=== PATIENT | female | born 1965 | race Caucasian/White ===

== ENCOUNTER 2025-10-15 04:00 | Day surgery (SDC) | payer OTHER, SELFPAY ==
[2025-10-13 10:14] VITALS: BMI 26.4
--- NOTE | 2025-10-13 10:25 | PC.NURSE ---
[facility] has started construction of its new state of the art ER which will open Spring 2026. With this, we anticipate parking may be a challenge for some our surgical patients and families. Parking spaces are limited but are available for all Surgical, obstetrics, and ER patients sharing this lot. If you arrive and find you are having a hard time finding a parking space, please note that we understand the challenges, please drive around the hospital and park near Hospital Entrance 1. When you enter this entrance, you can ask a volunteer to direct or take you back to the surgical waiting area to check in. We appreciate everyone?s understanding of these expected challenges while we build for your future. Report to the Outpatient Waiting Room, entrance under the green pavilion located off [address], at time 0830 on date _10/15/25_. Planned Procedure Time: _1030_.? Time changes happen often and if your time is changed the preop area will call you the afternoon before. - You and your visitor will be asked to self-screen and do not enter if you have any COVID symptoms. Please call surgeon if you need to reschedule. - A mask is optional within the hospital at this time. Patients may have clear liquids (water, carbonated beverages, clear teas, apple juice) until 3 hours prior to surgery with a maximum of 20 ounces. - No food from midnight until time of surgery and no smoking, or chewing tobacco (or any form of nicotine). No chewing gum, candy or mints. Take only the following medications with a SIP of water on the morning of surgery: ____LEVOTHYROXINE DO NOT STOP ANY OF YOUR OTHER PRESCRIPTION MEDICATIONS PRIOR TO SURGERY EXCEPT THE FOLLOWING Hold all vitamins and supplements TODAY 10/13/25 per anesthesiologist. Medications to discontinue per physician Date to take last dose Please no make-up, nail greenlandic, hairspray, perfume, deodorant, or body powder the day of surgery.? No jewelry (including any body piercings) or valuables the day of surgery, leave them at home.? Please take a shower or bath the night before, or the morning of, surgery with an antibacterial soap.? Wear comfortable, loose fitting clothing.? Children are encouraged to wear pajamas. - Jewelry must be removed prior to entering the operating room.? Rings and piercings that are not removed may be cut off. - The hospital will not accept responsibility for valuables.? - Please leave all valuables, including medications, at home the day of surgery. If you are going home after surgery, a licensed car pick up driver must drive you home.? - NO public transportation without another adult if you receive anesthesia. - We recommend that an adult stay with you for 24 hours following discharge. - We also recommend that you do not drive, make important decision, drink alcoholic beverages, or take any drugs that were not prescribed by your health care provider for at least 24 hours after your discharge time. For Pediatric surgeries, we recommend two adults accompany the child home. Follow any additional instructions given to you from your surgeon. Telephone instructions given to _PATIENT_and asked if any additional questions and then verbalized understanding. Patient advised to call surgeon office or pre surgery nurse liaison [phone] if any additional questions.
[2025-10-15] VITALS (10 sets, daily range): BP systolic 123–171; BP diastolic 65–84; PULSE 69–86; RESP 14–22; TEMP 36.4–36.7; O2SAT 91–100; BMI 27.3
--- OUTSIDE RECORDS SUMMARY | 2025-10-15 04:09 | XMS_ITS | Continuity of Care Document ---
Author Organization [facility] Address [address] [place] [address] Care Team Providers Care Covered Button Maker Name Role Phone BERTHA MACIAS Primary Care Provider Assessment No assessment recorded. Plan of Treatment Reminders Order Date Submit Date Provider Last Modified By Organization Details Last Modified Time Details Appointments Robotic [facility] 2024 10:30A Claudia POON MD Not available Not available Not available SURG POST OP 2024 03:15P Claudia POON MD Not available Not available Not available Lab None recorded . Referral None recorded . Procedures None recorded . Surgeries None recorded . Imaging None recorded . Medication Orders None recorded . Patient TargetsNo targets recorded. Patient InstructionsNo instructions recorded. Reason for Referral None Reported. Results Created Date Observation Date Name Description Value Unit Range Abnormal Flag Note LastModifiedBy Organization Detail LastModifiedTime 08/27/2008/27/2025 US, love rogers No observ ation record ed. [email or web address] [address], [place], [address], 08/27/2025 21:29:29 08/27/20 25 08/27/2025 US, love rogers No observ ation record ed. [facility] [address], [place], [address], 08/27/2025 18:52:57 08/27/2008/27/2025 , so knott No observ ation record ed. [facility] [address], [place], [address], 08/27/2025 18:53:06 Result Notes None recorded. Procedures Surgical History Date Name Laterality Status Provider Name and Address Organization Details Recorded Time 025 Colposcopy completed Kennedy Poon MD [address], [place], [address], , P[facility] 08/13/2025 16:46:16 025 Colposcopy completed Pat Silvermanney [facility] 08/27/2025 16:46:21 025 Colposcopy completed Avis Coyne [facility] 08/13/2025 15:36:21 025 Date of Last Pap Smear completed [facility] 08/04/2025 15:05:10 025 Date of Last Mammogram completed [facility] 08/04/2025 15:11:53 999 Tonsillectomy completed [facility] 08/04/2025 15:16:24 cholecystectomy completed [facility] 08/04/2025 15:17:14 Imaging Results None recorded. Procedure Notes None recorded. Medical Equipment None Reported. Allergies Allergen ID Allergen Name Allergen Category Reaction Reaction Severity Criticality Documentation Date Start Date Code Code System Note Provider Name and Address Organization Details Recorded Time 12789 codeine medicatio n Not available Not available Not available 08/04/2025 2670 RxNorm [facility] 15:04:19 09983 amoxicill in medicatio n Not available Not available Not available 08/04/2025 723 RxNorm [facility] 15:04:24 85179 ciproflox acin medicatio n Not available Not available Not available 08/04/2025 2551 RxNorm Sonia Burk [facility] 15:04:32 66158 acetamino phen / hydrocodo ne medicatio n Not available Not available Not available 08/04/2025 56539 2 RxNorm Sonia Burk [facility] 15:04:37 36353 doxycycli ne Not available rash Not available low 10/09/20252024 3640 RxNorm Not Available [facility] - External Data Service - prod 15:24:22 39184 hydrocodo ne Not available Not available Not available Not available 10/09/20252023 5489 RxNorm unrec ogniz ed react ion (text : GI Upset , code: [id number]) (from [facility]) Not Available [facility] - External Data Service - prod 15:24:22 Medications Name Sig Start Date Stop Date Status Note LastModified by Organization Details LastModified Time doxycycline hyclate 100 mg capsule TAKE 1 CAPSULE BY MOUTH TWICE DAILY FOR 10 DAYS 08/04 completed Not Available Not Available Not Available azithromyci n 250 mg tablet TAKE 2 TABLETS BY MOUTH ON DAY 1, AND THEN TAKE 1 TABLET BY MOUTH ONCE A DAY ON DAY 2 THROUGH DAY 5 08/04 completed Not Available Not Available Not Available benzonatate 200 mg capsule TAKE 1 CAPSULE BY MOUTH THREE TIMES DAILY NEEDED 08/04 completed Not Available Not Available Not Available meloxicam 15 mg tablet TAKE 1 TABLET BY MOUTH ONCE DAILY NEEDED 08/04 completed Not Available Not Available Not Available ondansetron HCl 4 mg tablet TAKE 1 TABLET BY MOUTH EVERY 6 HOURS NEEDED active Not Available Not Available No t Available prednisone 20 mg tablet TAKE 1 TABLET BY MOUTH ONCE DAILY 08/04 completed Not Available Not Available Not Available sertraline 100 mg tablet TAKE 1 & 1/2 (ONE & ONE-HALF) TABLETS BY MOUTH ONCE DAILY active Not Available Not Available No t Available sumatriptan 50 mg tablet TAKE 1 TABLET BY MOUTH, MAY REPEAT IN 2 HOURS WITH PERSISTEN T SYMPTOMS 08/04 completed Not Available Not Available Not Available tramadol 50 mg tablet TAKE 1 TABLET BY MOUTH THREE TIMES DAILY NEEDED active Not Available Not Available No t Available ketorolac 10 mg tablet TAKE 1 TABLET BY MOUTH 4 TIMES DAILY NEEDED 08/04 completed Not Available Not Available Not Available levothyroxi ne 100 mcg tablet TAKE 1 TABLET BY MOUTH ONCE DAILY 08/04 completed Not Available Not Available Not Available trazodone 100 mg tablet TAKE 1 TABLET BY MOUTH AT BEDTIME NEEDED active Not Available Not Available No t Available gabapentin 300 mg capsule TAKE 1 CAPSULE BY MOUTH THREE TIMES DAILY 08/04 completed Not Available Not Available Not Available gabapentin 100 mg capsule TAKE 1 CAPSULE BY MOUTH THREE TIMES DAILY 08/04 completed Not Available Not Available Not Available methylpredn isolone 4 mg tablets in a dose pack TAKE BY MOUTH DIRECTED ON INSIDE OF PACKAGE 08/04 completed Not Available Not Available Not Available fluticasone propionate 50 mcg/actuati on nasal spray,suspe nsion USE 1 SPRAY(S) IN EACH NOSTRIL ONCE DAILY 08/04 completed Not Available Not Available Not Available levothyroxi ne 112 mcg tablet TAKE 1 TABLET BY MOUTH ONCE DAILY active Not Available Not Available No t Available oxycodone 5 mg tablet TAKE 1 TABLET BY MOUTH THREE TIMES DAILY 08/04 completed Not Available Not Available Not Available cyclobenzap rine 5 mg tablet TAKE 1 TABLET BY MOUTH THREE TIMES DAILY NEEDED 08/04 completed Not Available Not Available Not Available bupropion HCl XL 150 mg 24 hr tablet, extended release TAKE 1 TABLET BY MOUTH ONCE DAILY 08/04 completed Not Available Not Available Not Available Tymlos 80 mcg/dose (3,120 mcg/1.56 mL) subcutaneou s pen injector active Not Available Not Available Not Available Vitals Date Recorded Body height Body mass index (BMI) Body weight Systolic And Diastolic Provider Name and Address Organization Details Last Updated DateTime 08/04/2025 162.56 cm 27.7 kg/m2 04237.81 g 129/79 mm[Hg] Sonia Burk [facility] 08/04/2025 15:03:57 Social History Question Answer Notes LastModified by Organizat ion Details LastModified Time Tobacco Smoking Status Never Smoker Sonia Burk [facility], [facility] 08/04/2025 15:14:43 Do You Have An Advance Directive? No [email or web address] Information n ot available 08/04/2025 Are You Blind Or Do You Have Difficulty Seeing? No Information n ot available 08/04/2025 What Is Your Level Of Caffeine Consumption? Moderate Information not available 08/04/2025 In The 14 Days Before Symptom Onset, Have You Had Close Contact With A Laboratory-confirm ed COVID-19 While That Case Was Ill? No Information n ot available 08/04/2025 In The 14 Days Before Symptom Onset, Have You Had Close Contact With A Person Who Is Under Investigation For COVID-19 While That Person Was Ill? No [email or web address] Information not available 08/04/2025 Have You Been To An Area Known To Be High Risk For COVID-19? No [email or web address] Information not available 08/04/2025 Are You Deaf Or Do You Have Serious Difficulty Hearing? No [email or web address] Information not available 08/04/2025 What Type Of Diet Are You Following? REGULAR [email or web address] Information n ot available 08/04/2025 What Is The Highest Grade Or Level Of School You Have Completed Or The Highest Degree You Have Received? [id number] Information not available 08/04/2025 Are There Any Guns Present In Your Home? Yes [email or web address] Information not available 08/27/2025 Do You Use Your Seat Belt Or Car Seat Routinely? Yes [email or web address] Information not available 08/04/2025 Are You Sexually Active? Yes [email or web address] Information not available 08/04/2025 Do You Have Smoke And Carbon Monoxide Detectors In Your Home? Yes [email or web address] Information not available 08/04/2025 Do You Use Sunscreen Routinely? No [email or web address] Information not available 08/04/2025 Have You Used IV Drugs? No Information not available 08/27/2025 Do You Have Difficulty Walking Or Climbing Stairs? No [email or web address] Information not available 08/04/2025 Sex: Unknown Functional Status Question Answer Note LastModified by Organizat ion Details LastModified Time Do you use any illicit or recreational drugs? No [email or web address] Information not available 08/27/2025 What is your level of alcohol consumption? Occasional Information not available 08/04/2025 Are you currently employed? No [email or web address] Information not available 08/04/2025 Are you able to walk independently without assistance or assistive devices? YESWOREST [email or web address] Information not available 08/04/2025 Are you able to care for yourself independently? Yes [email or web address] Information not available 08/04/2025 Do you have difficulty dressing, bathing, grooming, or toileting? No [email or web address] Information not available 08/04/2025 Mental Status Question Answer Note LastModified by Organization D etails LastModified Time Do you feel stressed (tense, restless, nervous, or anxious, or unable to sleep at night)? [id number] [email or web address] Information not available 08/04/2025 Family History Relationship Description Onset Age of this Age Resolved Age Notes LastModified by Organization Details LastModified Time Mother Heart disease [email or web address] Not available 2024 15:13:38 Mother Hypertensive disorder [email or web address] Not available 2024 15:13:44 Mother Dementia [email or web address] Not availa ble 10/09/2025 15:23:44 Mother Hypercholest erolemia [email or web address] Not available 2024 15:13:56 Maternal Grandfather Myocardial infarction Not available 08/04 15:14:20 Maternal Grandmother Disorder of thyroid gland Not available 2024 15:14:32 Medical History Condition Response Allergies (Food, seasonal, environmental ) N Other N Drug/Latex Allergies/Reactions N Breast Cancer N Blood Transfusion N Dermatologic Disorders N Lung Disease N Defects or Inherited Disease N Breast Problem N Gestational Diabetes N Hematologic disorders N Anesthesia Complications N History of STI Y Deep Vein Thrombosis N Polycystic ovary syndrome N Anxiety Disorder N Autoimmune disease N Arthritis N Polyps N Infertility N Acid Reflux (GERD) N History of abnormal pap Y Cancer N Varicosities N Stroke N Neurologic/Epilepsy N Endometriosis N High Cholesterol N Fibromyalgia N Headaches N Kidney Disease N Heart Problems N Thyroid Problems Y Kidney or Bladder Problems N GI Problems N Eating Disorder N Anemia N Art (IVF or FET) N Psychiatric Illness N Ovarian Cancer N Diabetes N Pulmonary (TB, Asthma) N Hepatitis/Liver Disease N No Past Medical History N Eczema N Urinary Tract Infection N Abuse/Domestic Violence N Asthma N Trauma/Violence N Depression/ depression N Heart Disease N Pre-Eclampsia N Hypertension N Osteoporosis Y Thrombophilias N Gynecological History Statement/Question Response Abnormal Pap Y Date of Last Mammogram 04/19/2025 N STIs/STDs N Was last menstrual period normal Y HPV Vaccine N Colposcopy 08/13/2025 Current Control Method Menopause Age at First Child 30 Date of Last Colonoscopy Sexually Active? Y Date of DEXA bone scan Age of first menstrual cycle 9 Date of Last Pap Smear 06/17/2025 Sexual Problems? N N Obstetrics History GPAL:G 2 P 2 0 0 2 Type Value Full Term 2 Living 2 Total 2 Past Encounters Encounter ID Performer Location Encounter Start Date Encounter Closed Date Diagnosis/Indication Diagnosis SNOMED-CT Code Diagnosis ICD10 Code Diagnosis IMO Codes Diagnosis Note [id number] TYRA PATIÑO NP [place] [address] [address] 08/04/2025 14:54:03 08/05/2025 15:15:53 Female urinary stress incontinence [id number] N39.3 [id number] Reports worsening stress incontinen ce over the past few years. Patient states that PCP noted cystocele on recent pelvic exam; patient states that she will often feel pelvic pressure and bulging of tissue at vaginal opening while in the shower. Denies urgency, frequency, dysuria.We reviewed treatment options. Patient declined referral for pelvic floor therapy and declined pessary device.Pat ient desires to have consult with urogyn to review surgical options. Discussed possibilit y of combinatio n surgery for hysterecto my and bladder sling. Patient interested in speaking with Dr. Poon before we send a referral to urogyn. History of abnormal cervical Papanicolaou smear [id number] Z87.42 [id number] Recent pap smear completed at PCP on 06/17/25 was HGSIL, HR HPV positive. Patient states that she has had normal pap smears in the past (unsure of exact date).Disc ussed pap smear results in detail. Discussed that per ASCCP guidelines , colposcopy recommende d for further evaluation and biopsy of cervix.Rev iewed colposcopy procedure thoroughly .Patient to schedule colposcopy with MD as she is considerin g a hysterecto my in addition to UROGYN consult for bladder sling due to stress incontinen ce. Health Concerns Section Related Observation LastModified by Organization Detai ls LastModified Time None Recorded Concern Status LastModified by Organization Details LastModified Time None Recorded Payers Encounter Date Sequence Insurance Name Policy Number Policy Marsh Covered Member ID Marsh Member ID Guarantor Name 08/04/2025 1 [employer] [id number] Constance Blakely [id number] Constance Blakely Notes Date Note Type Note Provider Name and Address Organization Details Recorded Time 08/04/2025 text/html 60 y/o female presents to discuss recent abnormal pap smear result. PCP referred her for further evaluation due to HGSIL, HPV positive result on 06/17/25.Patient states that her last pap smear was less than 10 yrs ago and was normal. Patient would also like treatment options to discuss worsening urinary stress incontinence. TYRA PATIÑO, TERESITA [address], [place], [address], [facility] 08/05/2025 14:52:46 OBGyn Episode No OBEpisode recorded.
--- OUTSIDE RECORDS SUMMARY | 2025-10-15 04:09 | XMS_ITS | Continuity of Care Document ---
Author Organization [facility] Address [address] [place] [address] [place] [address] Care Team Providers Care Funeral Service Apprentice Name Role Phone BERTHA MACIAS Primary Care Provider Assessment No assessment recorded. Plan of Treatment Reminders Order Date Submit Date Provider Last Modified By Organization Details Last Modified Time Details Appointments Robotic TLH 2024 10:30A Claudia HALL MD Not available Not available Not available SURG POST OP 2024 03:15P Claudia HALL MD Not available Not available Not available Lab None recorded. Referral None recorded. Procedures None recorded. Surgeries None recorded. Imaging US, pelvis 2024 025 juni [address], [address], [place], [address], 08/28/2025 10:17:19 US, transvagi nal 2024 025 juni [address], [address], [place], [address], 08/28/2025 10:17:19 Medication Orders None recorded. Patient TargetsNo targets recorded. Patient InstructionsNo instructions recorded. Reason for Referral None Reported. Results Created Date Observation Date Name Description Value Unit Range Abnormal Flag Note LastModifiedBy Organization Detail LastModifiedTime 08/13/2008/13/2025 SURGI ONESIMO PATHO LOGY surgical pathology SEE RESULT S BELOW CASE REPOR T: Surgi onesimo Patho logy Repor t Case: [id number] Autho alma galicia Provi amalia: Vern Hall MD Colle cted: 08/13 1555 Order ing Locat ion: [place] [facility] Recei gladis: 08/14 0312 Patho logis t: Gina Gaffney MD Speci men: Cervi x, CXBX ----- ----- ----- ----- ----- ----- ----- ----- ----- ----- ----- ----- ----- ----- ----- ----- ----- ---- FINAL DIAGN OSIS: Cervi x, biops y: -High grade squam ous intra epith elial lesio n (UBALDO- 2). -See comme nt. Elect isa yu by Gina Gaffney MD on 08/15 at 0641 CDT ----- ----- ----- ----- ----- ----- ----- ----- ----- ----- ----- ----- ----- ----- ----- ----- ----- ---- COMME NT: A p16 immun ostai n shows den galicia, diffu se posit steve expre ssion , suppo rting the above diagn osis. CLINI ONESIMO INFOR MATIO N: hpv+ MICRO SCOPI C DESCR IPTIO N: A micro scopi c exami natio n was perfo rmed. A porti on of the testi ng proce ss was perfo [facility]med at [facility], NMDP1 22. Digit al imagi ng may have been used in the diagn ostic asses sment of this case. This test was devel oped and its perfo rmanc e brad cteri stics deter mined by [facility]. It has not been clear ed or appro gladis by the U. S. Food and Drug Admin istra tion. The FDA has deter mined that such clear ance or appro dianne is not neces kina. This test may be used for clini onesimo purpo se. It shoul d not be regar ded as inves tigat ional or for resea rch. This labor atory is certi fied under the [facility] at[facility] Impro vemen t Amend ments of 1987 (CLIA ) as quali fied to perfo rm high compl exity clini onesimo labor atory testi ng. In cases which have decal cifie d tissu es, the resul ts shoul d be inter prete d with cauti on given the possi bilit y of false negat germain. The posit steve contr ols demon strat e appro priat e posit steve stain ing. The known tissu e negat steve contr ols are negat steve. The non-i mmune serum contr ol was non-r eacti ve. GROSS DESCR IPTIO N: A. Cervi x. The speci men is label ed with the patie nt's name, demog raphi cs and Cx Bx. Recei gladis in forma tariq are multi ple piece s of white -clark tissu e aggre gatin g 0.8 x 0.8 x 0.2 cm. The entir e speci men is submi tted in one casse tte. Gross ed by Curtis Matthews ll Not Available [facility] (Lab) [address], [place], [address], 08/15/2025 07:44:37 08/27/2008/27/2025 US, pelvi s No observ ation record ed. [email or web address] [address], [place], [address], 08/27/2025 21:29:29 08/27/2008/27/2025 US, pelvi s No observ ation record ed. lexii [place] [address], [place], [address], 08/27/2025 18:52:57 08/27/2023 0808/27/2025 US, trans vagin al No observ ation record ed. [facility] [address], [place], [address], 08/27/2025 18:53:06 Result Notes None recorded. Procedures Surgical History Date Name Laterality Status Provider Name and Address Organization Details Recorded Time 025 Colposcopy completed Kennedy Hall MD [address], [place], [address], [facility] 08/13/2025 16:46:16 025 Colposcopy completed Pat Brown [facility] 08/27/2025 16:46:21 025 Colposcopy completed Avis Coyne [facility] 08/13/2025 15:36:21 025 Date of Last Pap Smear completed [facility] 08/04/2025 15:05:10 025 Date of Last Mammogram completed [facility] 08/04/2025 15:11:53 999 Tonsillectomy completed [facility] 08/04/2025 15:16:24 cholecystectomy completed [facility] 08/04/2025 15:17:14 Imaging Results None recorded. Procedure Notes None recorded. Medical Equipment None Reported. Allergies Allergen ID Allergen Name Allergen Category Reaction Reaction Severity Criticality Documentation Date Start Date Code Code System Note Provider Name and Address Organization Details Recorded Time 31090 codeine medicatio n Not available Not available Not available 08/04/2025 2670 RxNorm [facility] 15:04:19 62539 amoxicill in medicatio n Not available Not available Not available 08/04/2025 723 RxNorm Sonia johns, [facility] 5 15:04:24 50251 ciproflox acin medicatio n Not available Not available Not available 08/04/2025 2551 RxNorm Sonia johns, [facility] 5 15:04:32 15851 acetamino phen / hydrocodo ne medicatio n Not available Not available Not available 08/04/2025 15370 2 RxNorm Sonia johns, [facility] 5 15:04:37 86647 doxycycli ne Not available rash Not available low 10/09/20252024 3640 RxNorm Not Available [facility] - External Data Service - prod 5 15:24:22 70046 hydrocodo ne Not available Not available Not available Not available 10/09/20252023 5489 RxNorm unrec ogniz ed react ion (text : GI Upset , code: 55074 5008) (from [facility]) Not Available [facility] - External Data Service - prod 5 15:24:22 Medications Name Sig Start Date Stop [...] and Address Organization Details Last Updated DateTime 08/27/2025 162.56 cm 28.5 kg/m2 96057.33 g 132/84 mm[Hg] Pat Brown [facility] 08/27/2025 16:44:44 Social History Question Answer Notes LastModified by Organizat ion Details LastModified Time Tobacco Smoking Status Never Smoker Sonia Burk andreas, [facility] 08/04/2025 15:14:43 Do You Have An Advance Directive? No [email or web address] Information n ot available 08/04/2025 Are You Blind Or Do You Have Difficulty Seeing? No Information n ot available 08/04/2025 What Is Your Level Of Caffeine Consumption? Moderate Information not available 08/04/2025 In The 14 Days Before Symptom Onset, Have You Had Close Contact With A Laboratory-confirm ed COVID-19 While That Case Was Ill? No [email or web address] Information n ot available 08/04/2025 In The 14 Days Before Symptom Onset, Have You Had Close Contact With A Person Who Is Under Investigation For COVID-19 While That Person Was Ill? No [email or web address] Information not available 08/04/2025 Have You Been To An Area Known To Be High Risk For COVID-19? No [email or web address] Information not available 08/04/2025 Are You Deaf Or Do You Have Serious Difficulty Hearing? No [email or web address] Information not available 08/04/2025 What Type Of Diet Are You Following? REGULAR [email or web address] Information n ot available 08/04/2025 What Is The Highest Grade Or Level Of School You Have Completed Or The Highest Degree You Have Received? [id number] [email or web address] Information not available 08/04/2025 Are There Any Guns Present In Your Home? Yes [email or web address] Information not available 08/27/2025 Do You Use Your Seat Belt Or Car Seat Routinely? Yes [email or web address] Information not available 08/04/2025 Are You Sexually Active? Yes [email or web address] Information not available 08/04/2025 Do You Have Smoke And Carbon Monoxide Detectors In Your Home? Yes [email or web address] Information not available 08/04/2025 Do You Use Sunscreen Routinely? No [email or web address] Information not available 08/04/2025 Have You Used IV Drugs? No [email or web address] Information not available 08/27/2025 Do You Have Difficulty Walking Or Climbing Stairs? No [email or web address] Information not available 08/04/2025 Sex: Unknown Functional Status Question Answer Note LastModified by Organizat ion Details LastModified Time Do you use any illicit or recreational drugs? No [email or web address] Information not available 08/27/2025 What is your level of alcohol consumption? Occasional [email or web address] Information not available 08/04/2025 Are you currently employed? No [email or web address] Information not available 08/04/2025 Are you able to walk independently without assistance or assistive devices? YESWOREST [email or web address] Information not available 08/04/2025 Are you able to care for yourself independently? Yes [email or web address] Information not available 08/04/2025 Do you have difficulty dressing, bathing, grooming, or toileting? No [email or web address] Information not available 08/04/2025 Mental Status Question Answer Note LastModified by Organization D etails LastModified Time Do you feel stressed (tense, restless, nervous, or anxious, or unable to sleep at night)? [id number] [email or web address] Information not available 08/04/2025 Family History Relationship Description Onset Age of this Age Resolved Age Notes LastModified by Organization Details LastModified Time Mother Heart disease [email or web address] Not available 2024 15:13:38 Mother Hypertensive disorder Not available 2024 15:13:44 Mother Dementia [email or web address] Not availa ble 10/09/2025 15:23:44 Mother Hypercholest erolemia [email or web address] Not available 2024 15:13:56 Maternal Grandfather Myocardial infarction [email or web address] Not available 08/04 15:14:20 Maternal Grandmother Disorder of thyroid gland Not available 2024 15:14:32 Medical History Condition Response Allergies (Food, seasonal, environmental ) N Other N Drug/Latex Allergies/Reactions N Blood Transfusion N Breast Cancer N Dermatologic Disorders N Lung Disease N [...] ICD10 Code Diagnosis IMO Codes Diagnosis Note [id number] TYRA PATIÑO NP [place] [address] [address] 08/04/2025 14:54:03 08/05/2025 15:15:53 Female urinary stress incontinence [id number] N39.3 [id number] Reports worsening stress incontinen ce over the [...] sling. Patient interested in speaking with Dr. Hall before we send a referral to urogyn. History of abnormal cervical Papanicolaou smear [id number] Z87.42 [id number] Recent pap smear completed at PCP on 06/17/25 was HGSIL, HR HPV positive. Patient states that she has had normal pap smears in the past (unsure of exact date).Disc ussed pap smear results in detail. Discussed that per ASCCP guidelines , colposcopy recommende d for further evaluation and biopsy of cervix.Rev iewed colposcopy procedure thoroughly .Patient to schedule colposcopy with as she is considerin g a hysterecto my in addition to UROGYN consult for bladder sling due to stress incontinen ce. [id number] Kennedy Hall MD [place] [address] [address] 08/13/2025 14:51:26 08/13/2025 16:51:14 Breast neoplasm screening status [id number] Z12.31 177470 Dysplasia of cervix 7339 1008 N87.9 41914 Colposcopi c examinatio n performed. Likely high-grade dysplasia. Prolapse with the cervix at the introitus. Biopsies were taken. She tolerated it well [id number] Kennedy Hall MD [place] [address] [address] 08/27/2025 16:21:59 08/28/2025 10:17:38 Breast neoplasm screening status [id number] Z12.31 783593 Dysplasia of cervix 7339 1008 N87.9 89311 Third degr ee uterine prolapse 03912025 N81.3 70942 This patient is 60-year-ol d female with pelvic organ prolapse and severe cervical dysplasia. We discussed her treatment options in detail. We considered Urogynecol ogy consult. There is concern about mesh erosion with sacral colpopexy well and total hysterecto my is performed. I spent over 50 minutes on the patient's care in total , including documentat ion and ultrasound interpreta tion , along with treatment plan. Ultrasound was performed. We discussed ultrasound results. Ultimately we agreed to total robotic hysterecto my and bilateral salpingo-o ophorectom y along with a sacral spinous ligament fixation. The patient understand s the procedure. The procedure was described to the patient in great detail. the patient also understand s the risks. The risks were also explained in detail. She understand s that injuries May occur during surgery. She understand s these injuries can result in hospitaliz ation, more surgery, and severe illness. She understand s there is risk of hemorrhage and infection. [id number] Kennedy Hall MD [place] [address] [address] 08/27/2025 17:19:12 08/28/2025 10:17:18 Uterine prolapse 83785300 N81.4 R87.629 30079 Health Concerns Section Related Observation LastModified by Organization Detai ls LastModified Time None Recorded Concern Status LastModified by Organization Details LastModified Time None Recorded Payers Encounter Date Sequence Insurance Name Policy Number Policy Marsh Covered Member ID Marsh Member ID Guarantor Name 08/27/2025 1 [employer] [id number] Constance Eppersonpter [id number] Constance Eppersonpter Notes Date Note Type Note Provider Name and Address Organization Details Recorded Time 08/27/2025 text/html This patient is 60-year-old female with pelvic organ prolapse and severe cervical dysplasia. We discussed her treatment options in detail. We considered Urogynecology consult. There is concern about mesh erosion with sacral colpopexy well and total hysterectomy is performed. I spent over 50 minutes on the patient's care in total , including documentation and ultrasound interpretation , along with treatment plan. Ultrasound was performed. We discussed ultrasound results. Ultimately we agreed to total robotic hysterectomy and bilateral salpingo-oophorectom y along with a sacral spinous ligament fixation. The patient understands the procedure. The procedure was described to the patient in great detail. the patient also understands the risks. The risks were also explained in detail. She understands that injuries May occur during surgery. She understands these injuries can result in hospitalization, more surgery, and severe illness. She understands there is risk of hemorrhage and infection. Kennedy Hall MD [address], [place], [address], [facility] 08/27/2025 18:44:50 OBGyn Episode No OBEpisode recorded.
--- OUTSIDE RECORDS SUMMARY | 2025-10-15 04:09 | XMS_ITS | Data Portability ---
Author Organization [facility] Address [address] [place] [address] Care Team Providers Care Rock Room Worker Name Role Phone BERTHA MACIAS Primary Care [...] Referral None recorded. Procedures None recorded. Surgeries robotic assisted hysterect adelita w/bilater al salpingo- oophorect adelita (SURG) 2024 025 [id number] [facility], [facility], [address], 08/28/2025 16:12:44 uterosacr al ligament vault suspensio n , vaginal (SURG) 2024 025 [email or web address] [facility], [facility] [place] [address], [address], 08/28/2025 13:51:40 Imaging US, pelvis 2024 025 [email or web address] [address], [address], [place], [address], 08/28/2025 10:17:19 US, transvagi nal 2024 025 [address], [address], [place], [address], 08/28/2025 10:17:19 Medication Orders None recorded. Patient TargetsNo targets recorded. Patient InstructionsNo instructions recorded. Reason for Referral None Reported. Results Created Date Observation Date Name Description Value Unit Range Abnormal Flag Note LastModifiedBy Organization Detail LastModifiedTime 08/13/2008/13/2025 SURGI ONESIMO PATHO LOGY surgical pathology SEE RESULT S BELOW CASE REPOR T: Surgi onesimo Patho logy Repor t Case: [id number] Autho alma galicia Provi amalia: Vern Hall MD Colle cted: 08/13 1555 Order ing Locat ion: [place] Patho log[facility] Recei gladis: 08/14 Patho logis t: Gina Gaffney MD Speci men: Cervi x, CXBX ----- ----- ----- ----- ----- ----- ----- ----- ----- ----- ----- ----- ----- ----- ----- ----- ----- ---- FINAL DIAGN OSIS: Cervi x, biops y: -High grade squam ous intra epith elial lesio n (UBALDO- 2). -See mitchell nt. Elect isa cuevas d by Gina Gaffney MD on 08/15 at 0641 CDT ----- ----- ----- ----- ----- ----- ----- ----- ----- ----- ----- ----- ----- ----- ----- ----- ----- ---- COMME NT: A p16 immun ostai n shows den g, diffu se posit steve expre ssion , [...] brad cteri stics deter mined by Adam landry. It has not been clear ed or [...] ed by Curtis Matthews ll Not Available [facility] (Lab) [address], [place], [address], 08/15/2025 07:44:37 08/27/2008/27/2025 US, pelvi s No observ ation record ed. [email or web address] Emely [address], [place], [address], 08/27/2025 21:29:29 08/27/20 25 08/27/2025 US, pelvi s No observ ation record ed. [facility] [address], [place], [address], 08/27/2025 18:52:57 08/27/2008/27/2025 US, trans vagin al No observ ation record ed. [facility] [address], [place], [address], 08/27/2025 18:53:06 Result Notes None recorded. Procedures Surgical History Date Name Laterality Status Provider Name and Address Organization Details Recorded Time 025 Colposcopy completed Kennedy Hall MD [address], [place], [address], [facility] 08/13/2025 16:46:16 025 Colposcopy completed Pat Brown [facility] 08/27/2025 16:46:21 025 Colposcopy completed Avis Coyne [facility] 08/13/2025 15:36:21 025 Date of Last Pap Smear completed [facility] 08/04/2025 15:05:10 025 Date of Last Mammogram completed [facility] 08/04/2025 15:11:53 999 Tonsillectomy completed [facility] 08/04/2025 15:16:24 cholecystectomy completed [facility] 08/04/2025 15:17:14 Imaging Results None recorded. Procedure Notes None recorded. Medical Equipment None Reported. Allergies Allergen ID Allergen Name Allergen Category Reaction Reaction Severity Criticality Documentation Date Start Date Code Code System Note Provider Name and Address Organization Details Recorded Time 07810 codeine medicatio n Not available Not available Not available 08/04/2025 2670 RxNorm [facility] 15:04:19 48647 amoxicill in medicatio n Not available Not available Not available 08/04/2025 723 RxNorm [facility] 15:04:24 29194 ciproflox acin medicatio n Not available Not available Not available 08/04/2025 2551 RxNorm [facility] 15:04:32 47977 acetamino phen / hydrocodo ne medicatio n Not available Not available Not available 08/04/2025 61479 2 RxNorm [facility] 15:04:37 95131 doxycycli ne Not available rash Not available low 10/09/20252024 3640 RxNorm Not Available [facility] - External Data Service - prod 15:24:22 03220 hydrocodo ne Not available Not available Not available Not available 10/09/20252023 5489 RxNorm unrec ogniz ed react ion (text : GI Upset , code: 37170 5008) [facility] Not Available [facility] - External Data Service [...] Updated DateTime 08/04/2025 162.56 cm 27.7 kg/m2 46974.81 g 129/79 mm[Hg] Sonia Bhargavi [facility] 08/04/2025 15:03:57 Date Recorded Body height Body mass index (BMI) Body weight Systolic And Diastolic Provider Name and Address Organization Details Last Updated DateTime 08/13/2025 162.56 cm 27.5 kg/m2 01807.78 g 116/79 mm[Hg] Avis Coyne [facility] 08/13/2025 15:35:24 Date Recorded Body height Body mass index (BMI) Body weight Systolic And Diastolic Provider Name and Address Organization Details Last Updated DateTime 08/27/2025 162.56 cm 28.5 kg/m2 80606.33 g 132/84 mm[Hg] Patflaquito Silvermanney [facility] 08/27/2025 16:44:44 Social History Question Answer Notes LastModified by Organizat ion Details LastModified Time Tobacco Smoking Status [facility] 08/04/2025 15:14:43 Do You Have An Advance Directive? No Information n ot available 08/04/2025 Are You Blind Or Do You Have Difficulty Seeing? No [email or web address] Information n ot available 08/04/2025 What Is Your Level Of Caffeine Consumption? Moderate [email or web address] Information not available 08/04/2025 In The 14 Days Before Symptom Onset, Have You Had Close Contact With A Laboratory-confirm ed COVID-19 While That Case Was Ill? No [email or web address] Information n ot available 08/04/2025 In The 14 Days Before Symptom Onset, Have You Had Close Contact With A Person Who Is Under Investigation For COVID-19 While That Person Was Ill? No [email or web address] Information not available 08/04/2025 Have You Been To An Area Known To Be High Risk For COVID-19? No [email or web address] Information not available 08/04/2025 Are You Deaf Or Do You Have Serious Difficulty Hearing? No [email or web address] Information not available 08/04/2025 What Type Of Diet Are You Following? REGULAR [email or web address] Information n ot available 08/04/2025 What Is The Highest Grade Or Level Of School You Have Completed Or The Highest Degree You Have Received? TC83517-8 [email or web address] Information not available 08/04/2025 Are There Any Guns Present In Your Home? Yes Information not available 08/27/2025 Do You Use Your Seat Belt Or Car Seat Routinely? Yes [email or web address] Information not available 08/04/2025 Are You Sexually Active? Yes [email or web address] Information not available 08/04/2025 Do You Have Smoke And Carbon Monoxide Detectors In Your Home? Yes Information not available 08/04/2025 Do You Use Sunscreen Routinely? No Information not available 08/04/2025 Have You Used IV Drugs? No [email or web address] Information not available 08/27/2025 Do You Have Difficulty Walking Or Climbing Stairs? No Information not available 08/04/2025 Sex: Unknown Functional Status Question Answer Note LastModified by Organizat ion Details LastModified Time Do you use any illicit or recreational drugs? No [email or web address] Information not available 08/27/2025 What is your level of alcohol consumption? Occasional [email or web address] Information not available 08/04/2025 Are you currently employed? No [email or web address] Information not available 08/04/2025 Are you able to walk independently without assistance or assistive devices? YESWOREST [email or web address] Information not available 08/04/2025 Are you able to care for yourself independently? Yes [email or web address] Information not available 08/04/2025 Do you have difficulty dressing, bathing, grooming, or toileting? No [email or web address] Information not available 08/04/2025 Mental Status Question Answer Note LastModified by Organization D etails LastModified Time Do you feel stressed (tense, restless, nervous, or anxious, or unable to sleep at night)? [id number] [email or web address] Information not available 08/04/2025 Family History Relationship Description Onset Age of this Age Resolved Age Notes LastModified by Organization Details LastModified Time Mother Heart disease [email or web address] Not available 2024 15:13:38 Mother Hypertensive disorder [email or web address] Not available 2024 15:13:44 Mother Dementia [email or web address] Not availa ble 10/09/2025 15:23:44 Mother Hypercholest erolemia [email or web address] Not available 2024 15:13:56 Maternal Grandfather Myocardial infarction [email or web address] Not available 08/04 15:14:20 Maternal Grandmother Disorder of thyroid gland [email or web address] Not available 2024 15:14:32 Medical History Condition Response Allergies (Food, seasonal, environmental ) N Other N Breast Cancer N Drug/Latex Allergies/Reactions N Blood Transfusion N Dermatologic Disorders N Lung Disease N Defects or Inherited Disease N Breast Problem N Gestational Diabetes N Hematologic disorders N Anesthesia Complications N History of STI Y Deep Vein Thrombosis N Polycystic ovary syndrome N Anxiety Disorder N Autoimmune disease N Arthritis N Infertility N Polyps N Acid Reflux (GERD) N History of abnormal pap Y Cancer N Stroke N Varicosities N Neurologic/Epilepsy N Endometriosis N High Cholesterol N Headaches N Fibromyalgia N Kidney Disease N Heart Problems N Kidney or Bladder Problems N Thyroid Problems Y GI Problems N Eating Disorder N Anemia [...] ICD10 Code Diagnosis IMO Codes Diagnosis Note [id number] TYRA PATIÑO NP [facility] [address] [address] 08/04/2025 14:54:03 08/05/2025 15:15:53 Female urinary stress incontinence 04372596 N39.3 009165 Reports worsening stress incontinen ce over the [...] urogyn. History of abnormal cervical Papanicolaou smear 051923734 Z87.42 [id number] Recent pap smear completed at PCP on [...] bladder sling due to stress incontinen ce. [id number] Kennedy Hall MD [facility] [address] [address] 08/13/2025 14:51:26 08/13/2025 16:51:14 Breast neoplasm screening status 755862496 Z12.31 537536 Dysplasia of cervix 7339 1008 N87.9 76656 Colposcopi c examinatio n performed. Likely high-grade dysplasia. Prolapse with the cervix at the introitus. Biopsies were taken. She tolerated it well [id number] Kennedy Hall MD [facility] [address] [address] 08/27/2025 16:21:59 08/28/2025 10:17:38 Breast neoplasm screening status 398260375 Z12.31 899044 Dysplasia of cervix 7339 1008 N87.9 08359 Third degr ee uterine prolapse 64339121 N81.3 65858 This patient is 60-year-ol d female with [...] there is risk of hemorrhage and infection. [id number] Kennedy Hall MD [facility] [address] [address] 08/27/2025 17:19:12 08/28/2025 10:17:18 Uterine prolapse 33187850 N81.4 R87.629 07084 [id number] Kennedy Hall MD [facility] [address] [address] 10/09/2025 15:22:29 10/11/2025 11:25:13 Prolapse of female genital organs 81783121 N81.9 98977484 Dysplasia of cervix 7339 1008 D06.9 289458 this patient is a 60-year-ol d female with uterine vaginal prolapse and severe cervical dysplasia. We have agreed to perform robotic assisted hysterecto my with bilateral salpingo-o ophorectom y with uterosacra l ligament suspension .. She understand s the risks, benefits, and alternativ es. She has completed the informed consent process and is ready to proceed. Health Concerns Section Related Observation LastModified by Organization Detai ls LastModified Time None Recorded Concern Status LastModified by Organization Details LastModified Time None Recorded Advance Directives Directive N: Payers Insurance Date Sequence Insurance Name Policy Number Policy Marsh Covered Member ID Marsh Member ID Guarantor Name 10/12/2025 1 [employer] [id number] Constance Eppersonpter [id number] Constance Blakely Notes Date Note Type Note [...] to discuss worsening urinary stress incontinence. TYRA PATIÑO NP [address], [place], [address], [facility] 08/05/2025 14:52:46 08/13/2025 text/html 60-year-old female presents for colposcopic examination. The procedure was explained to the patient in detail. She understands the procedure. She understands the risks, benefits, and alternatives. She has completed the informed consent process and is ready to proceed. Kennedy Hall MD [address], [place], [address], [facility] 08/13/2025 16:51:04 08/27/2025 text/html This patient is 60-year-old female [...] infection. Kennedy Hall MD [address], [place], [address], [facility] 08/27/2025 18:44:50 10/09/2025 text/html this patient is a 60-year-old female with uterine vaginal prolapse and severe cervical dysplasia. We have agreed to perform robotic assisted hysterectomy with bilateral salpingo-oophorectom y with uterosacral ligament suspension.. She understands the risks, benefits, and alternatives. She has completed the informed consent process and is ready to proceed. The patient understands the procedure. The procedure [...] infection. Kennedy Hall MD [address], [place], [address], [facility] 10/10/2025 22:21:04 OBGyn Episode Ob Episode Information Episode Created Date Number of Fetuses Patient Bloodtype Patient rh Status Prepregnancy Weight lbs Domestic Partner Domestic Partner Phone Father Name Adult Education Manager Status 08/04/20 25 1 CLOSED Fetus Data First Name Last Name Admitted to NICU Weight (g) Sex Living Outcome Pediatric Complications Fetus ID Race Codes Race Delivery Type 3628.73 6 M Full Term [id number] Vaginal Delivery Carlos Calculation Initial Carlos Date Initial Exam Date Initial Exam Provider Initial Ultrasound Date Last Menstrual Period Date Ultra Sound Weeks Gestation 0 Eighteen To Twenty Week Carlos Update Ultra Sound Date Fundal Height At Umbil Quickening Date Ultra Sound Latest Weeks Gestation Final Carlos Confirmed By Final Carlos Confirmed Date Final Carlos Date Ultra Sound Latest Days Gestation 0 0 Menstrual History Last Menstrual Date Menses Monthly On Bcp Conception Prior Menses Frequency Hcg Plus Date Menarche Onset Age Delivery Information Delivery Date Delivery Type Labor Anesthesia Weeks Gestation Incision Type Labor Labor Length Hrs Delivered By Post Complications Tubal Sterilization Discharge Date Comments 5 41 Discharge Information Feeding Method Contraceptive Method Maternal HG B and HCT Levels Ob Episode Information Episode Created Date Number of Fetuses Patient Bloodtype Patient rh Status Prepregnancy Weight lbs Domestic Partner Domestic Partner Phone Father Name Adult Education Manager Status 08/04/20 25 1 CLOSED Fetus Data First Name Last Name Admitted to NICU Weight (g) Sex Living Outcome Pediatric Complications Fetus ID Race Codes Race Delivery Type 3175.14 4 M Full Term [id number] Vaginal Delivery Carlos Calculation Initial Carlos Date Initial Exam Date Initial Exam Provider Initial Ultrasound Date Last Menstrual Period Date Ultra Sound Weeks Gestation 0 Eighteen To Twenty Week Carlos Update Ultra Sound Date Fundal Height At Umbil Quickening Date Ultra Sound Latest Weeks Gestation Final Carlos Confirmed By Final Carlos Confirmed Date Final Carlos Date Ultra Sound Latest Days Gestation 0 0 Menstrual History Last Menstrual Date Menses Monthly On Bcp Conception Prior Menses Frequency Hcg Plus Date Menarche Onset Age Delivery Information Delivery Date Delivery Type Labor Anesthesia Weeks Gestation Incision Type Labor Labor Length Hrs Delivered By Post Complications Tubal Sterilization Discharge Date Comments 7 41 Discharge Information Feeding Method Contraceptive Method Maternal HG B and HCT Levels
--- OUTSIDE RECORDS SUMMARY | 2025-10-15 04:09 | XMS_ITS | Encounter Summary ---
Author Organization [facility] Address [facility] [place] [address] Care Team Providers Care Plant And Maintenance Technician Name Role Phone Jeanie Henriquez MD Primary Care Provider [phone] Jeanie Henriquez MD Primary Care Provider [phone] Jeanie Henriquez MD Unavailable Encounter Details Date Type Department Care Team (Late st Contact Info) Description 04/21/2021 [employer] [facility] Patient Accounts [address] [place] [address] [facility] Provider Financial assistance application Social History Tobacco Use Types Packs/Day Years Used Date Smoking Tobacco: Never Assessed Comments No Sex and Gender Information Value Date Recorded Sex Assigned at Female 04/17/2024 3:36 PM CDT Legal Sex Female 5:34 PM CDT Gender Identity Female 04/17/2024 3:36 PM CDT Sexual Orientation Not on file documented as of this encounter Plan of Treatment Not on file documented as of this encounter Visit Diagnoses Not on filedocumented in this encounter Additional Health Concerns Infection Onset Date Last Indicated Resolved Time COVID-19 Rule Out 11/08/2021 11/08/2021 11/08/2021 8:36 PM PATIENT SERVICES CLERK documented as of this encounter Care Teams Plant And Maintenance Technician Relationship Specialty Start Date End Date Jeanie Henriquez MD [address] [place] [address] PCP - General FAMILY PRACTICE 11/23/20 04/14/24 Jeanie Henriquez MD [address] [place] [address] PCP - General FAMILY PRACTICE 04/15/24 Jeanie Henriquez MD [address] [place] [place] [address] FAMILY PRACTICE 04/15/24 documented as of this encounter
--- OUTSIDE RECORDS SUMMARY | 2025-10-15 04:09 | XMS_ITS | Continuity of Care Document ---
Author Organization [facility] [place] Address [address] [place] [address] Care Team Providers Care Automotive Salesperson Name Role Phone BERTHA MACIAS Primary Care [...] instructions recorded. Reason for Referral None Reported. Procedures Surgical History Date Name Laterality Status Provider Name and Address Organization Details Recorded Time 025 Colposcopy completed Kennedy Poon MD [address], [place], [address], [facility] 08/13/2025 16:46:16 025 Colposcopy completed Pat Brown [facility] 08/27/2025 16:46:21 025 Colposcopy completed Avis Coyne [facility] 08/13/2025 15:36:21 025 Date of Last Pap Smear completed Sonia Burk [facility] 08/04/2025 15:05:10 025 Date of Last Mammogram completed [facility] 08/04/2025 15:11:53 999 Tonsillectomy completed [facility] 08/04/2025 15:16:24 cholecystectomy completed [facility] 08/04/2025 15:17:14 Imaging Results None recorded. Procedure Notes None recorded. Medical Equipment None Reported. Allergies Allergen ID Allergen Name Allergen Category Reaction Reaction Severity Criticality Documentation Date Start Date Code Code System Note Provider Name and Address Organization Details Recorded Time 39416 codeine medicatio n Not available Not available Not available 08/04/2025 2670 RxNorm [facility] 15:04:19 48466 amoxicill in medicatio n Not available Not available Not available 08/04/2025 723 RxNorm [facility] 15:04:24 47462 ciproflox acin medicatio n Not available Not available Not available 08/04/2025 2551 RxNorm [facility] 15:04:32 09775 acetamino phen / hydrocodo ne medicatio n Not available Not available Not available 08/04/2025 87619 2 RxNorm [facility] 15:04:37 61399 doxycycli ne Not available rash Not available low 10/09/20252024 3640 RxNorm Not Available hubert - External Data Service - prod 15:24:22 62845 hydrocodo ne Not available Not available Not available Not available 10/09/20252023 5489 RxNorm unrec ogniz ed react ion (text : GI Upset , code: 56449 5008) (from [facility]) Not Available hubert - External Data [...] Not Available Not Available Not Available Vitals None Recorded Social History Question Answer Notes LastModified by Organizat ion Details LastModified Time Tobacco Smoking Status Never Smoker Sonia johns, [facility] 08/04/2025 15:14:43 Do You Have An Advance Directive? No Information n ot available 08/04/2025 Are You Blind Or Do You Have Difficulty Seeing? No Information n ot available 08/04/2025 What Is Your Level Of Caffeine Consumption? Moderate [email or web address] Information not available 08/04/2025 In The 14 Days Before Symptom Onset, Have You Had Close Contact With A Laboratory-confirm ed COVID-19 While That Case Was Ill? No [email or web address] Information n ot available 08/04/2025 In The 14 Days Before Symptom Onset, Have You Had Close Contact With A Person Who Is Under Investigation For COVID-19 While That Person Was Ill? No [email or web address] Information not available 08/04/2025 Have You Been To An Area Known To Be High Risk For COVID-19? No [email or web address] Information not available 08/04/2025 Are You Deaf Or Do You Have Serious Difficulty Hearing? No [email or web address] Information not available 08/04/2025 What Type Of Diet Are You Following? REGULAR [email or web address] Information n ot available 08/04/2025 What Is The Highest Grade Or Level Of School You Have Completed Or The Highest Degree You Have Received? JQ00050-4 yzaodfs27 Information not available 08/04/2025 Are There Any Guns Present In Your Home? Yes [email or web address] Information not available 08/27/2025 Do You Use Your Seat Belt Or Car Seat Routinely? Yes [email or web address] Information not available 08/04/2025 Are You Sexually Active? Yes [email or web address] Information not available 08/04/2025 Do You Have Smoke And Carbon Monoxide Detectors In Your Home? Yes Information not available 08/04/2025 Do You Use Sunscreen Routinely? No [email or web address] Information not available 08/04/2025 Have You Used IV Drugs? No Information not available 08/27/2025 Do You Have Difficulty Walking Or Climbing Stairs? No [email or web address] Information not available 08/04/2025 Sex: Unknown Functional Status Question Answer Note LastModified by Organizat ion Details LastModified Time Do you use any illicit or recreational drugs? No [email or web address] Information not available 08/27/2025 What is your level of alcohol consumption? Occasional [email or web address] Information not available 08/04/2025 Are you currently employed? No [email or web address] Information not available 08/04/2025 Are you able to walk independently without assistance or assistive devices? YESWOREST [email or web address] Information not available 08/04/2025 Are you able to care for yourself independently? Yes [email or web address] Information not available 08/04/2025 Do you have difficulty dressing, bathing, grooming, or toileting? No gtiligm68 Information not available 08/04/2025 Mental Status Question Answer Note LastModified by Organization D etails LastModified Time Do you feel stressed (tense, restless, nervous, or anxious, or unable to sleep at night)? [id number] [email or web address] Information not available 08/04/2025 Family History Relationship Description Onset Age of this Age Resolved Age Notes LastModified by Organization Details LastModified Time Mother Heart disease [email or web address] Not available 2024 15:13:38 Mother Hypertensive disorder [email or web address] Not available 2024 15:13:44 Mother Dementia [email or web address] Not availa ble 10/09/2025 15:23:44 Mother Hypercholest erolemia twdazly27 Not available 2024 15:13:56 Maternal Grandfather Myocardial infarction [email or web address] Not available 08/04 15:14:20 Maternal Grandmother Disorder of thyroid gland itnadxg70 Not available 2024 15:14:32 Medical History Condition Response Allergies (Food, seasonal, environmental ) N Other N Drug/Latex Allergies/Reactions N Breast Cancer N Blood Transfusion N Lung Disease N Dermatologic Disorders N Defects or Inherited Disease N Breast Problem N Gestational Diabetes N Hematologic disorders N Anesthesia Complications N History of STI Y Deep Vein Thrombosis N Polycystic ovary syndrome N Anxiety Disorder N Autoimmune disease N Arthritis N Polyps N Infertility N History of abnormal pap Y Acid Reflux (GERD) N Cancer N Varicosities N Stroke N Neurologic/Epilepsy [...] ICD10 Code Diagnosis IMO Codes Diagnosis Note [id number] Kennedy Poon MD [place] [address] [address] 10/09/2025 15:22:29 10/11/2025 11:25:13 Prolapse of female genital organs 82143486 N81.9 [id number] Dysplasia of cervix 7339 1008 D06.9 [id number] this patient is a 60-year-ol d female [...] Member ID Marsh Member ID Guarantor Name 10/09/2025 1 [employer] [id number] Constance Eppersonpter [id number] Constance Eppersonpter Notes Date Note Type Note Provider Name and Address Organization Details Recorded Time 10/09/2025 text/html this patient is a 60-year-old female with uterine vaginal prolapse and severe cervical dysplasia. We have agreed to perform robotic assisted hysterectomy with bilateral salpingo-oophorect adelita with uterosacral ligament suspension.. She understands the [...] is risk of hemorrhage and infection. Kennedy Poon MD [address], [place], [address], [facility] 10/10/2025 22:21:04 OBGyn Episode No OBEpisode recorded.
--- OUTSIDE RECORDS SUMMARY | 2025-10-15 04:09 | XMS_ITS | Continuity of Care Document ---
Author Organization [facility] Address [address] [place] [address] Care Team Providers Care Wire Coiler Machine Operator Name Role Phone BERTHA MACIAS Primary Care Provider [phone] Assessment No assessment recorded. Plan of Treatment [...] Abnormal Flag Note LastModifiedBy Organization Detail LastModifiedTime 08/13/20 25 08/13/2025 SURGI ONESIMO PATHO LOGY surgical pathology SEE RESULT S BELOW CASE REPOR T: Surgi onesimo Patho logy Repor t Case: [id number] Autho alma galicia Provi amalia: Vern Hall MD Colle cted: 08/13 1555 Order ing Locat ion: [place] [facility] Recei gladis: 08/142 Patho logis t: Gina Gaffney MD Speci [...] one casse tte. Gross ed by Curtis norwood Not Available [facility] ([facility]) [address], [place], [address], 08/15/2025 07:44:37 08/27/2008/27/2025 , pelvi s No observ ation record ed. [email or web address] [address], [place], [address], 08/27/2025 21:29:29 08/27/20 25 08/27/2025 [place], pelvi s No observ ation record ed. [facility] [address], [place], [address], 08/27/2025 18:52:57 08/27/2008/27/2025 , trans vagin al No observ ation record ed. [facility] [address], [place], [address], 08/27/2025 18:53:06 Result Notes None recorded. Procedures Surgical History Date Name Laterality Status Provider Name and Address Organization Details Recorded Time 025 Colposcopy completed Kennedy Hall MD [address], [place], [address], [facility] 08/13/2025 16:46:16 025 Colposcopy completed Pat Brown [facility] 08/27/2025 16:46:21 025 Colposcopy completed Avis Coyne [facility] 08/13/2025 15:36:21 025 Date of Last Pap Smear completed [facility] 08/04/2025 15:05:10 025 Date of Last Mammogram completed [facility] 08/04/2025 15:11:53 999 Tonsillectomy completed [facility] 08/04/2025 15:16:24 cholecystectomy completed [facility] 08/04/2025 15:17:14 Imaging Results None recorded. Procedure Notes None recorded. Medical Equipment None Reported. Allergies Allergen ID Allergen Name Allergen Category Reaction Reaction Severity Criticality Documentation Date Start Date Code Code System Note Provider Name and Address Organization Details Recorded Time 16573 codeine medicatio n Not available Not available Not available 08/04/2025 2670 [facility] 15:04:19 72966 amoxicill in medicatio n Not available Not available Not available 08/04/2025 723 [facility] 15:04:24 50812 ciproflox acin medicatio n Not available Not available Not available 08/04/2025 2551 RxNorm Sonia [facility] 15:04:32 09138 acetamino phen / hydrocodo ne medicatio n Not available Not available Not available 08/04/2025 [address] [facility] [place] [facility] 15:04:37 50344 doxycycli ne Not available rash Not available low 10/09/20252024 3640 RxNorm Not Available hubert - External Data Service - prod 15:24:22 51818 hydrocodo ne Not available Not available Not available Not available 10/09/20252023 5489 RxNorm unrec ogniz ed react ion (text : GI Upset , code: 04359 5008) (from [facility]) Not Available hubert - External [...] Updated DateTime 08/13/2025 162.56 cm 27.5 kg/m2 20396.78 g 116/79 mm[Hg] Avis Coyne [facility] 08/13/2025 15:35:24 Social History Question Answer Notes LastModified by Organizat ion Details LastModified Time Tobacco Smoking Status Never Smoker Sonia johns, [facility] 08/04/2025 15:14:43 Do You Have An Advance Directive? No Information n ot available 08/04/2025 Are You Blind Or Do You Have Difficulty Seeing? No [email or web address] Information n ot available 08/04/2025 What Is Your Level Of Caffeine Consumption? Moderate Information not available 08/04/2025 In The 14 Days Before Symptom Onset, Have You Had Close Contact With A Laboratory-confirm ed COVID-19 While That Case Was Ill? No [email or web address] Information n ot available 08/04/2025 In The 14 Days Before Symptom Onset, Have You Had Close Contact With A Person Who Is Under Investigation For COVID-19 While That Person Was Ill? No [email or web address] Information not available 08/04/2025 Have You Been To An Area Known To Be High Risk For COVID-19? No [email or web address] Information not available 08/04/2025 Are You Deaf Or Do You Have Serious Difficulty Hearing? No [email or web address] Information not available 08/04/2025 What Type Of Diet Are You Following? REGULAR zddfduu38 Information n ot available 08/04/2025 What Is The Highest Grade Or Level Of School You Have Completed Or The Highest Degree You Have Received? [id number] imkqtgz76 Information not available 08/04/2025 Are There Any Guns Present In Your Home? Yes sreisej05 Information not available 08/27/2025 Do You Use Your Seat Belt Or Car Seat Routinely? Yes utrorhi69 Information not available 08/04/2025 Are You Sexually Active? Yes [email or web address] Information not available 08/04/2025 Do You Have Smoke And Carbon Monoxide Detectors In Your Home? Yes rpyyznf75 Information not available 08/04/2025 Do You Use Sunscreen Routinely? No mjtnxod95 Information not available 08/04/2025 Have You Used IV Drugs? No Information not available 08/27/2025 Do You Have Difficulty Walking Or Climbing Stairs? No Information not available 08/04/2025 Sex: Unknown Functional Status Question Answer Note LastModified by Organizat ion Details LastModified Time Do you use any illicit or recreational drugs? No [email or web address] Information not available 08/27/2025 What is your level of alcohol consumption? Occasional [email or web address] Information not available 08/04/2025 Are you currently employed? No bxytdwo19 Information not available 08/04/2025 Are you able to walk independently without assistance or assistive devices? YESWOREST ljmlxto28 Information not available 08/04/2025 Are you able to care for yourself independently? Yes fesgpyo78 Information not available 08/04/2025 Do you have difficulty dressing, bathing, grooming, or toileting? No qrjwcia97 Information not available 08/04/2025 Mental Status Question Answer Note LastModified by Organization D etails LastModified Time Do you feel stressed (tense, restless, nervous, or anxious, or unable to sleep at night)? [id number] Information not available 08/04/2025 Family History Relationship Description Onset Age of this Age Resolved Age Notes LastModified by Organization Details LastModified Time Mother Heart disease [email or web address] Not available 2024 15:13:38 Mother Hypertensive disorder awfhxtp60 Not available 2024 15:13:44 Mother Dementia [email or web address] Not availa ble 10/09/2025 15:23:44 Mother Hypercholest erolemia tarppmv29 Not available 2024 15:13:56 Maternal Grandfather Myocardial infarction ijvbhcl19 Not available 08/04 15:14:20 Maternal Grandmother Disorder [...] ICD10 Code Diagnosis IMO Codes Diagnosis Note [id number] TYRA PATIÑO NP [facility] [address] [address] 08/04/2025 14:54:03 08/05/2025 15:15:53 Female urinary stress incontinence [id number] N39.3 965241 Reports worsening stress incontinen ce over the [...] urogyn. History of abnormal cervical Papanicolaou smear 061787861 Z87.42 [id number] Recent pap smear completed at PCP on [...] bladder sling due to stress incontinen ce. [id number] Kennedy Hall MD [facility] [address] [address] 08/13/2025 14:51:26 08/13/2025 16:51:14 Breast neoplasm screening status 842399055 Z12.31 921205 Dysplasia of cervix 7339 1008 N87.9 00274 Colposcopi c examinatio n performed. Likely high-grade dysplasia. Prolapse with the cervix at the introitus. Biopsies were taken. She tolerated it well Health Concerns Section Related Observation LastModified by Organization Detai ls LastModified Time None Recorded Concern Status LastModified by Organization Details LastModified Time None Recorded Payers Encounter Date Sequence Insurance Name Policy Number Policy Marsh Covered Member ID Marsh Member ID Guarantor Name 08/13/2025 1 [employer] [id number] Constance Burrows Zora [id number] Constance Stormy Zora Notes Date Note Type Note Provider Name and Address Organization Details Recorded Time 08/13/2025 text/html 60-year-old female presents for colposcopic examination. The procedure was explained to the patient in detail. She understands the procedure. She understands the risks, benefits, and alternatives. She has completed the informed consent process and is ready to proceed. Kennedy Hall MD [address], [place], [address], [facility] 08/13/2025 16:51:04 OBGyn Episode No OBEpisode recorded.
--- OUTSIDE RECORDS SUMMARY | 2025-10-15 04:09 | XMS_ITS | Clinical Summary ---
Author Organization [facility] Address [address] [place] [address] Care Team Providers Care Print Developer Automatic Name Role Phone Bertha Henriquez MD Primary Care Provider [phone] Bertha Henriquez MD Unavailable Allergies Active Allergy Reactions Criticality Noted Date Comments Amoxicillin Hives 07/13/2024 Ciprofloxacin Diarrhea 07/13/2024 Codeine GI Upset 07/13/2024 Doxycycline Rash Low 11/10/2024 Hydrocodone GI Upset 07/13/2024 Medications levothyroxine (SYNTHROID) 100 MCG tablet Take 1 tablet (100 mcg total) by mouth daily. 10/10/2024 Active sertraline (ZOLOFT) 100 MG tablet Take 1.5 tablets (150 mg total) by mouth daily. 09/25/2024 Active traZODone (DESYREL) 100 MG tablet Take 1 tablet (100 mg total) by mouth nightly as needed. at bedtime. 10/10/2024 Active traMADol (ULTRAM) 50 MG tabletIndicatio ns:Acute Pain < 7 Day Supply Take 1 tablet (50 mg total) by mouth every 6 (six) hours as needed. Indications: Acute Pain < 7 Day Supply 16 tablet 11/10/2024 Active Active Problems Problem Noted Date Diagnosed Date SLAP (superior labrum from anterior to posterior ) tear 03/15/2022 Other type I or II open intr a-articular fracture of distal end of right radius with routine healing, subsequent encounter 09/17/2020 Social History Tobacco Use Types Packs/Day Years Used Date Smoking Tobacco: Never Smokeless Tobacco: Never Tobacco Cessation:Counseling Given: Not Answered Alcohol Use Standard Drinks/Week Comments Yes 0 (1 standard drink = 0.6 oz pur e alcohol) rarely Comments No Sex and Gender Information Value Date Recorded Sex Assigned at Female 04/17/2024 3:36 PM CDT Legal Sex Female 5:34 PM CDT Gender Identity Female 04/17/2024 3:36 PM CDT Sexual Orientation Not on file Last Filed Vital Signs Vital Sign Reading Time Taken Comments Blood Pressure 133/68 11/10/2024 4:28 PM INFORMATION SECURITY ANALYST Pulse 70 11/10/2024 4:28 PM INFORMATION SECURITY ANALYST Temperature 36.5 C (97.7 F) 11/10/2024 2:46 PM INFORMATION SECURITY ANALYST Respiratory Rate 16 11/10/2024 4:28 PM INFORMATION SECURITY ANALYST Oxygen Saturation 97% 11/10/2024 4:28 PM INFORMATION SECURITY ANALYST Inhaled Oxygen Concentration - - Weight 73.5 kg (162 lb) 06/16/2025 2:06 PM CDT Height 162.6 cm (5' 4) 11/10/2024 2:46 PM INFORMATION SECURITY ANALYST Body Mass Index 27.81 11/10/2024 2:46 PM INFORMATION SECURITY ANALYST Plan of Treatment Health Maintenance Due Date Last Done Comments Cervical Cancer Screening Pa p Smear (Age 30 to 64) Every 3 Years 1965 Colorectal Cancer Screening Colonoscopy (10 Years) 1965 Annual Physical 1968 Hepatitis C 1983 DTaP, Tdap and Td Vaccines ( 1 - Tdap) 1984 Cervical Cancer Screening Pa p with HPV Testing (Age 30 to 64) Every 5 Years 1995 Cervical Cancer Screening [facility] HPV 1995 Pneumococcal Vaccine: 50+ Years (1 of 1 - PCV) 2015 Zoster Vaccines (1 of 2) 2015 COVID-19 Vaccine ( - 2024-2 6 season) 2025 Influenza Adult (#1) 2025 Mammogram Screening 04/25/2027 04/25/2025, 04/18/2024, 07/29/2022 RSV Immunization or 60+ Years (1 - 1-dose 75+ series) 2040 Hepatitis A Vaccines Aged Out No long er eligible based on patient's age to complete this topic Meningococcal B Vaccine Aged Out No l onger eligible based on patient's age to complete this topic Meningococcal Vaccine Aged Out No jaspal carlos eligible based on patient's age to complete this topic RSV Immunizations Under 20 Months Aged Out No longer eligible b ased on patient's age to complete this topic Procedures Procedure Name Priority Date/Time Associated Diagnosis Comments MG SCREENING W JOANN VLAD DIGI Routine 04/25/2025 11:00 AM CDT Visit for screening mammogram from Last 3 Months or Most Recently Relevant to Health Maintenance Results * MG SCREENING W JOANN VLAD DIGI (04/25/2025 11:00 AM CDT) Anatomical Region Laterality Modality Breast Bilateral Mammography 04/25/2025 1:09 PM CDT Impressions 04/25/2025 1:10 PM CDT IMPRESSION: No interval features to suggest malignancy. In the absence of clinical symptoms, return for annual screening mammogram due in 1 year. RECOMMENDATION: Routine Screening, Bilateral in 1 year ASSESSMENT: ACR BI-RADS 2 - BENIGN FINDING(S) Ordered By: BERTHA HENRIQUEZ Interpreted By: Grant Da Silva MD, 04/25/2025 1:09 PM Narrative 04/25/2025 1:10 PM CDT [address] [place] [address] EXAMINATION: BILATERAL SCREENING MAMMOGRAPHY Exam Date: 04/25/2025 10:21 AM CLINICAL INDICATION: 59 years of age female routine screening. COMPARISON: Screening mammogram(s) dating back to 06/16/2015. TECHNIQUE: Digital CC & MLO views. Tomosynthesis imaging acquisition Study read with the assistance of a computer-aided detection system. TISSUE DENSITY: There are scattered areas of fibroglandular density. FINDINGS: Benign calcifications and partially depicted left axillary lymph nodes. There is a left-sided loop recorder device again noted. No suspicious grouping of microcalcifications, architectural distortion, or new dominant suspicious nodule 3 dimensionally demonstrated in either breast. us Bertha Henriquez MD MAMMO Final Result from Last 3 Months or Most Recently Relevant to Health Maintenance Insurance [employer] [facility] Care Teams Print Developer Automatic Relationship Specialty Start Date End Date Bertha Henriquez MD [address] [place] [address] PCP - General FAMILY PRACTICE 04/15/24 Bertha Henriquez MD [address] [place] [address] FAMILY PRACTICE 04/15/24
[2025-10-15] MEDS: KETOROLAC 15 MG/ML VIAL (*BKC) IV PUSH (09:00)
[2025-10-15] MEDS: ACETAMINOPHEN 500 MG TABLET 1000 MG PO (09:00)
[2025-10-15 09:04] LABS: Hematocrit 38.7 % (37.0-47.0); Hemoglobin 12.9 g/dL (12.0-15.0); Immature Granulocyte Percent A 0.4 % (0-0.5); Lymphocytes Absolute Auto 1.40 K/mm3 (0.9-3.2); Mean Corpuscular HGB Conc 33.3 g/dl (32-36); Mean Corpuscular Hemoglobin 32.3 pg (26-34); Mean Corpuscular Volume 96.8 fl (80-100); Nucleated Red Blood Cells Absolute Auto 0.000 K/mm3 (0.0-0.012); Nucleated Red Blood Cells Perc 0.0 % (0.0-0.2); Platelet Count Result 282 k/mm3 (150-375); Red Blood Count 4.00 M/mm3 (4.2-5.4); White Blood Count 5.4 K/mm3 (4.5-10.0)
--- NOTE | 2025-10-15 09:09 | ECG_ITS ---
Test Date: 2025-10-15 09:23:51 Measurements Intervals [place] Rate: 60 P: 54 UT: 159 QRS: 7 QRSD: 88 T: 96 QT: 423 QTc: 424 Interpretive Statements SINUS RHYTHM MODERATE T-WAVE ABNORMALITY, CONSIDER ANTEROLATERAL ISCHEMIA BASELINE ARTIFACT- I, II, III, AVR, AVL, AVF ABNORMAL ECG No previous ECG available for comparison Electronically Signed On 10-15-2025 10:35:41 INDIRECT SALES EXEC by Silvestre Mendoza D.O.
--- NOTE | 2025-10-15 09:24 | WPDHPUPDATE1 ---
History and Physical Update Update Date/Time: 10/15/25 09:24 History and Physical has been reviewed, including an updated exam of the patient. There are NO changes in the patient's condition. Risks, benefits, and alternatives have been discussed and questions answered. Patient agrees to proceed with procedure.
[2025-10-15 09:27] LABS: Alanine Aminotransferase 24 U/L (6-35); Albumin Level 4.6 g/dL (3.5-5.1); Alkaline Phosphatase 120 U/L (38-126); Anion Gap 8 mmol/L (4-12); Aspartate Amino Transferase 28 U/L (14-36); Bilirubin,Total 0.6 mg/dL (0.2-1.3); Blood Urea Nitrogen 19 mg/dL (7-17); Calcium 9.4 mg/dL (8.4-10.2); Carbon Dioxide 25 mmol/L (22-30); Chloride 105 mmol/L (98-107); Estimated CRCL calculation 64 ml/min; Estimated Glomerular Filt Rate > 60; Glucose 107 mg/dL (65-110); Potassium 3.8 mmol/L (3.4-5.0); Sodium 138 mmol/L (137-145); Total Protein 8.0 g/dL (6.3-8.2)
--- NOTE | 2025-10-15 09:49 | WPDANESEPPF ---
Anes - Initial Pre Proc Eval Procedure: Operation Date: 10/15/25 10:30 Proposed Procedures p Robotic Assisted Hysterectomy with Bilateral Salpingo-oophorectomy and Uterosacral Ligament Vault Suspension - Kennedy Hall MD Date/Time: 10/15/25 09:49 Surgeon: Kennedy Hall MD Pre Op Diagnosis: Complete Uterovaginal Prolapse Patient Data Age: 60 Gender: F Height: 1.63 m Weight: 70 kg Allergies Allergy/AdvReac Type Severity Reaction Status Date / Time amoxicillin AdvReac GI SPASMS Verified 10/13/25 10:38 ciprofloxacin AdvReac Nausea Verified 10/13/25 10:38 codeine AdvReac Nausea Verified 10/13/25 10:38 Home Medications ?Medication ?Instructions ?Recorded ?Confirmed ?Type abaloparatide (Tymlos) 80 mcg subcut DAILY 10/13/25 10/13/25 History ascorbic acid (vitamin C) 500 mg 500 mg PO DAILY 10/13/25 10/13/25 History tablet (C-500) levothyroxine 112 mcg tablet 112 mcg PO DAILY 10/13/25 10/13/25 History sertraline 100 mg tablet 150 mg PO HS 10/13/25 10/13/25 History tramadol 50 mg tablet 50 mg PO TID PRN pain 10/13/25 10/13/25 History trazodone 100 mg tablet 100 mg PO HS 10/13/25 10/13/25 History Laboratory Tests 10/15/25 08:57 WBC 5.4 K/mm3 (4.5-10.0) RBC 4.00 L M/mm3 (4.2-5.4) Hgb 12.9 g/dL (12.0-15.0) Hct 38.7 % (37.0-47.0) MCV 96.8 fl (80-100) MCH 32.3 pg (26-34) MCHC 33.3 g/dl (32-36) RDW 11.6 % (11.5-14.5) Plt Count 282 k/mm3 (150-375) MPV 8.7 fl (7.4-10.4) Immature Gran % (Auto) 0.4 % (0-0.5) Neut % (Auto) 63.9 % (45.5-73.1) Lymph % (Auto) 25.7 % (18.3-44.2) Morrill % (Auto) 5.9 % (2.6-8.5) Eos % (Auto) 3.7 % (0-4.4) Baso % (Auto) 0.4 % (0.2-1.2) Lymph # (Auto) 1.40 K/mm3 (0.9-3.2) Morrill # (Auto) 0.3 K/mm3 (0.1-0.6) Eos # (Auto) 0.2 K/mm3 (0-0.3) Baso # (Auto) 0.0 K/mm3 (0.0-0.1) Abs Immat Gran (auto) 0.02 K/mm3 (0.00-0.031) Absolute Neuts (auto) 3.5 K/mm3 (1.3-6.7) Absolute Nucleated RBC 0.000 K/mm3 (0.0-0.012) Nucleated RBC % 0.0 % (0.0-0.2) Sodium 138 mmol/L (137-145) Potassium 3.8 mmol/L (3.4-5.0) Chloride 105 mmol/L (98-107) Carbon Dioxide 25 mmol/L (22-30) Anion Gap 8 mmol/L (4-12) BUN 19 H mg/dL (7-17) Creatinine 0.70 mg/dL (0.7-1.0) Estim Creat Clear Calc 64 ml/min Estimated GFR > 60 (59 - ) Glucose 107 mg/dL (65-110) Calcium 9.4 mg/dL (8.4-10.2) Total Bilirubin 0.6 mg/dL (0.2-1.3) AST 28 U/L (14-36) ALT 24 U/L (6-35) Alkaline Phosphatase 120 U/L (38-126) Total Protein 8.0 g/dL (6.3-8.2) Albumin 4.6 g/dL (3.5-5.1) Blood Type A Positive Antibody Screen Pending Patient hx anesthesia problems: none Family hx anesthesia problems: none Results Review: All pre-operative results and documents have been reviewed as part of the pre-operative evaluation. [facility] Social History Social History Smoking status: Never smoker Alcohol intake: current Alcohol use details: 4 YR Living arrangements: with family Shantell Mattson Final PreProcedure Day of Procedure 10/15/25 09:49 Patient weight: normal Lungs: normal air movement Airway: Mallampati scale class II Neurological: alert and oriented Last oral intake: >/= 8 hours ASA classification: II Emergent: no Anesthetic plan: proceed Anesthesia type and monitoring: general ETT and standard monitoring Results Review: All pre-operative results and documents have been reviewed as part of the pre-operative evaluation. Hypothyroidism, pt w hx of loop recorder, cardiac ablation x 3 approx 2018. EKG reviewed. Pt w excellent functional status, walking 1-2 fos, states she walked for 3 hours 3 days ago, no cp or sob, only limited by abd pain/her reason for presenting today for surgery. Discussed w pt, spouse, Dr Hall and [employer]. Will proceed based on functional status and educated pt to f/u w cardio/primary dr in the future. Informed Consent: The patient's anesthetic plan and its attendant risks and benefits were discussed with the patient/family/POA. Questions were solicited and answers provided to the satisfaction of the patient/family/POA.
[2025-10-15] MEDS: ceFAZolin 2 GM in SODIUM CHLORIDE 0.9% IV 50 ML 100 ML IVPB (09:50)
[2025-10-15] MEDS: LACTATED RINGERS 1,000 ML 30 ML IV CONT ×2 (10:45→13:00)
--- NOTE | 2025-10-15 11:44 | S_PTH ---
PATIENT: Constance Blakely LOC: [facility] U#:[id number] AGE/SX: 60/F ROOM: RE10/15/[address]: Kennedy Hall MD : 1965 BED: DIS: 10/16/2025 SPEC #: [id number] RECD: 10/15/25 13:38 STATUS: ALBERTO REQ #: [id number] MELISSA: 10/15/25 11:[address]: Kennedy Hall DEPT: [facility] Surgical RECD BY: Millie Jimenez ENTERED: 10/15/25 13:38 SP TYPE: Surgical OTHR DR: Jeanie Henriquez MD Tissues: A - Uterus Procedures: Hematoxylin and Eosin Stain Gross and Microscopic Level 5
--- NOTE | 2025-10-15 12:56 | W.PM.PROC2 ---
Procedure Note - Detailed Date of Procedure 10/15/25 Pre-op Diagnosis Complete Uterovaginal Prolapse Post-op Diagnosis Same Procedure Performed Robot assisted Total hysterectomy with bilateral salpingo oophorectomy. Uterosacral ligament suspension Surgeon Kennedy Hall MD Anesthesia General Indications heavy vaginal bleeding, pelvic pain Description of Procedure This patient was taken to the operating room. She was prepped and draped in the dorsal lithotomy position after induction of general anesthesia. The uterine manipulator and Bhavin cup were placed. This was done with a speculum and tenaculum. The speculum was placed. The cervix was grasped with a tenaculum. The stay sutures were placed at 3 and 9:00 a.m.. The stay sutures of 0 Vicryl were tied to the appropriately Size scope after it was slipped around the cervix.. The tip of the ALIZA manipulator was placed in the intrauterine cavity. The cup was slid into place around the cervix and into the fornices. It was locked into place. The sutures were then wrapped around the handle and tied under tension. A 8 mm skin incision was made in the left upper quadrant the abdomen. a 5 mm Visiport trocar was inserted into abdominal cavity and pneumoperitoneum was achieved. A 8 mm supraumbilical incision was made and a 8 mm trocar was inserted into the intrauterine cavity under direct visualization of the scope. an 8 mm incision was made in the right upper quadrant of the abdomen and an 8 mm robotic trocar was placed the inter uterine cavity under direct visualization the scope. An 11 mm trocar was inserted in the right upper quadrant of the abdomen rectal is a cystoscope after an incision was made there as well. The robot was docked. Electronic Orientation of the robot was performed. Bilateral ureteral lysis was performed. This was done from the pelvic brim down to the uterine artery. This was done with careful dissection using sharp and blunt dissection.Bilateral salpingo-oophorectomy was performed. The bilateral infundibulopelvic ligaments were cauterized thoroughly and transected after visualization of the ureter passing over the pelvic brim. In stepwise fashion around the ovary the mesosalpinx was cauterized transected. The Fallopian tube tissue/ mesosalpinx was cauterized transected a stepwise fashion medially to the cornua of the uterus. the tube was transected at the cornua and cauterized thoroughly. The bilateral tubes and ovaries were taken out through the large air lock port. Then In a stepwise fashion along the lateral aspects of the uterus the round ligament and broad ligaments were cauterized transected down to the level of the uterine arteries. A bladder flap was created in the bladder was moved distally to the end of the cervix and over the Bhavin cup. The bilateral uterine arteries were cauterized and transected. Colpotomy was then performed. In a circumferential fashion the vagina was transected using unipolar cautery. The incision was made down on the Bhavin cup. The uterus and cervix were taken out through the vagina. A pneumo occluder was placed in the vagina. The vaginal cuff was closed with a 0 V lock suture in a running fashion. The pelvis was irrigated with copious amounts antibiotic irrigation. The ureters were again examined and found to be intact and flowing freely under the uterine arteries into the bladder. The bladder was intact. It was examined directly. Uterosacral ligaments were plicated to the posterior vaginal cuff. 0 Ethibond sutures were used to take progressive steps along the posterior vaginal cuff plicating the uterosacral ligament and progressively higher steps onto the back of vaginal cuff. Three sutures were used on each side. Cystoscopy was performed after administration of methylene blue. The cystoscope was inserted. Bladder was distended with fluid. The ureteric meatus was observed bilaterally. Blue fluid was seen to egress bilaterally. The bladder was drained and the cystoscope was withdrawn. The vagina was irrigated with Betadine solution after removal of the Pneumo occluder. the trocars were removed after the robot was undocked. The skin was closed with subacute or Dermabond. The patient was taken to recovery room. She was stable condition. Sponge lap and needle counts were correct x2. Estimated Blood Loss 125 Urine Output 800 Drains Yes Packing No Pathology Yes Complications No immediate complications Condition Stable Disposition Floor
[2025-10-15] MEDS: fentaNYL CITRATE INJ (*CRX) 100 MCG/2 ML VIAL 25 MCG IV PUSH ×2 (13:39→13:43)
[2025-10-15] MEDS: DEXTROSE 5%/0.45% SOD CHL 1,000 ML 125 ML IV CONT (14:37)
[2025-10-15] MEDS: ONDANSETRON INJ 4 MG/2 ML VIAL IV PUSH ×2 (14:40→20:22)
[2025-10-15] MEDS: KETOROLAC 30 MG/ML VIAL (*BKC) IV PUSH ×2 (14:41→20:22)
--- NOTE | 2025-10-15 14:56 | PC.NURSE ---
This patient, Constance Blakely, was received from PACU on 10/15/25 at 1423. Patient/family oriented to unit policies and routines
[2025-10-15] MEDS: HYDROmorphone HCL INJ (*CRX) 1 MG/ML SYR IV PUSH ×3 (16:09→22:44)
[2025-10-15] MEDS: SERTRALINE HCL 50 MG TABLET 150 MG PO (22:43)
[2025-10-16] MEDS: ONDANSETRON INJ 4 MG/2 ML VIAL IV PUSH (03:26)
[2025-10-16] MEDS: KETOROLAC 30 MG/ML VIAL (*BKC) IV PUSH (03:26)
[2025-10-16 03:30] VITALS: BP 133/71; PULSE 58; RESP 16; TEMP 36.7; O2SAT 97
[2025-10-16] MEDS: LEVOTHYROXINE SODIUM 112 MCG TABLET PO (06:32)
[2025-10-16] MEDS: ACETAMINOPHEN 500 MG TABLET 1000 MG PO (06:32)
[2025-10-16 07:35] VITALS: BP 115/66; PULSE 66; RESP 12; TEMP 36.9; O2SAT 96
--- NOTE | 2025-10-16 08:33 | PM.GYNPNOP ---
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- PN:Subj Post-Op Subjective Date/time seen: 10/16/25 08:33 Subjective: patient reports feeling better, patient has no complaints and pain is well controlled Exam Const: General: healthy appearing, comfortable and no acute distress Resp: Auscultation: clear to auscultation bilaterally, no rales, no rhonchi and no wheezes Cardio: Rate: regular rate Heart sounds: no click, no murmurs and no rubs GI: Inspection: non-distended Auscultation: normal bowel sounds Extrem: General: normal to inspection, no pedal edema and no calf tenderness 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 - PN: Obj Data Vital Signs Vital Signs: Vital Signs - 24 hr 10/15/25 09:00 10/15/25 13:00 10/15/25 13:15 Temperature 97.6 F 97.9 F Pulse Rate 77 86 82 Respiratory Rate 15 14 Blood Pressure 171/82 H 145/74 H 141/75 H Pulse Oximetry 100 99 99 Oxygen Delivery Room Air Simple Face Mask Simple Face Mask Oxygen Flow Rate 8 8 10/15/25 13:30 10/15/25 13:45 10/15/25 14:00 Temperature Pulse Rate 81 77 79 Respiratory Rate 16 15 17 Blood Pressure 135/71 130/65 123/84 Pulse Oximetry 98 91 95 Oxygen Delivery Room Air Room Air Room Air Oxygen Flow Rate 10/15/25 14:15 10/15/25 18:40 10/15/25 18:40 Temperature 97.9 F 97.9 F Pulse Rate 74 69 69 Respiratory Rate 14 17 17 Blood Pressure 135/68 133/69 Pulse Oximetry 94 98 98 Oxygen Delivery Room Air Room Air Oxygen Flow Rate 10/15/25 22:45 10/15/25 22:45 10/16/25 03:30 Temperature 98.1 F 98.1 F Pulse Rate 70 70 58 L Respiratory Rate 17 17 16 Blood Pressure 124/71 133/71 Pulse Oximetry 98 98 97 Oxygen Delivery Room Air Oxygen Flow Rate 10/16/25 03:30 10/16/25 06:35 Temperature Pulse Rate 58 L Respiratory Rate 16 Blood Pressure Pulse Oximetry 97 Oxygen Delivery Room Air Room Air Oxygen Flow Rate Intake/Output Intake/Output: Intake & Output 10/13/25 10/14/25 10/15/25 10/16/25 23:59 23:59 23:59 23:59 Intake Total 250 Output Total 1120 1525 Balance -870 -1525 Meds/Results Medications: Active Medications Generic Name Dose Route Start Last Admin Trade Name Freq PRN Reason Stop Dose Admin Acetaminophen 1,000 mg 10/15/25 18:00 10/16/25 06:32 Acetaminophen 500 Mg Tablet PO 1,000 mg Q6HR VENICE Administration Ascorbic Acid 500 mg 10/16/25 09:00 Ascorbic Acid 500 Mg Tablet PO DAILY VENICE Docusate Sodium 100 mg 10/15/25 17:00 10/15/25 17:18 Docusate Sodium 100 Mg Capsule PO Not Given BID VENICE Hydromorphone HCl 1 mg 10/15/25 15:50 10/15/25 22:44 Hydromorphone Hcl Inj (*Crx) 1 Mg/Ml Syr IV PUSH 1 mg Q2H PRN Administration Pain Rated 7-10 Dextrose/Sodium Chloride 1,000 mls @ 125 mls/hr 10/15/25 14:16 10/16/25 06:38 Dextrose 5% Sodium Chloride 0.45% IV CONT Not Given .Q8H VENICE Ibuprofen 600 mg 10/16/25 12:00 Ibuprofen 600 Mg Tablet PO Q6HR VENICE Levothyroxine Sodium 112 mcg 10/16/25 06:30 10/16/25 06:32 Levothyroxine Sodium 112 Mcg Tablet PO 112 mcg DAILY@0630 VENICE Administration Naloxone HCl 0.1 mg 10/15/25 14:16 Naloxone Hcl 0.4 Mg/Ml Vial IV PUSH Q2M PRN Respiratory rate less than 10 Ondansetron HCl 4 mg 10/15/25 14:16 10/16/25 03:26 Ondansetron Inj 4 Mg/2 Ml Vial IV PUSH 4 mg Q6H PRN Administration Nausea And Vomiting Oxycodone HCl 5 mg 10/15/25 14:16 Oxycodone Hcl (*Crx) 5 Mg Tab Ir PO Q4H PRN Pain Rated 4-6 Oxycodone HCl 10 mg 10/15/25 14:16 Oxycodone Hcl (*Crx) 5 Mg Tab Ir PO Q6H PRN Pain Rated 7-10 Sertraline HCl 150 mg 10/15/25 21:00 10/15/25 22:43 Sertraline Hcl 50 Mg Tablet PO 150 mg HS VENICE Administration Simethicone 80 mg 10/15/25 17:00 10/15/25 17:18 Simethicone 80 Mg Tab.Chew PO Not Given TIDWM VENICE Tramadol HCl 50 mg 10/15/25 14:16 Tramadol Hcl (*Crx) 50 Mg Tablet PO TID PRN Pain 1-3 Trazodone HCl 100 mg 10/15/25 21:00 10/15/25 22:44 Trazodone Hcl 50 Mg Tablet PO 100 mg HS VENICE Administration Labs 10/15/25 08:57 10/15/25 08:57 Labs: Laboratory Results - last 24 hr 10/15/25 08:57 WBC 5.4 RBC 4.00 L Hgb 12.9 Hct 38.7 MCV 96.8 MCH 32.3 MCHC 33.3 RDW 11.6 Plt Count 282 MPV 8.7 Immature Gran % (Auto) 0.4 Neut % (Auto) 63.9 Lymph % (Auto) 25.7 Hamilton % (Auto) 5.9 Eos % (Auto) 3.7 Baso % (Auto) 0.4 Lymph # (Auto) 1.40 Hamilton # (Auto) 0.3 Eos # (Auto) 0.2 Baso # (Auto) 0.0 Abs Immat Gran (auto) 0.02 Absolute Neuts (auto) 3.5 Absolute Nucleated RBC 0.000 Nucleated RBC % 0.0 Sodium 138 Potassium 3.8 Chloride 105 Carbon Dioxide 25 Anion Gap 8 BUN 19 H Creatinine 0.70 Estim Creat Clear Calc 64 Estimated GFR > 60 Glucose 107 Calcium 9.4 Total Bilirubin 0.6 AST 28 ALT 24 Alkaline Phosphatase 120 Total Protein 8.0 Albumin 4.6 Blood Type A Positive Antibody Screen Negative
[2025-10-16] MEDS: ASCORBIC ACID 500 MG TABLET PO (08:46)
[2025-10-16] MEDS: SIMETHICONE 80 MG TAB.CHEW PO (08:46)
[2025-10-16] MEDS: DOCUSATE SODIUM 100 MG CAPSULE PO (08:47)
== END 2025-10-16 09:50 | disposition home or self-care (01) ==
LOC: ANHSURGERY 08:09 → ANHOB2 14:19
PROVIDERS: PCP Family Medicine; Visit Provider Obstetrics & Gynecology
PROC: (CPT 57283; principal; 2025-10-15 10:30)
DX: N81.3 Complete uterovaginal prolapse (principal); N72 Inflammatory disease of cervix uteri; D06.7 Carcinoma in situ of other parts of cervix; N83.8 Other noninflammatory disorders of ovary, fallopian tube and broad ligament; D27.0 Benign neoplasm of right ovary; N83.292 Other ovarian cyst, left side
CPT/HCPCS: 57283; 58571; S2900; 36415; 80053; 85025; 86850; 86900; 86901; 88307; 93005; 99199; J0690; A9270; J1100; J1171; J1885; J2250; J2405; J2704; J3010; J7030; J7120; Q9968